=== PATIENT | male | born 1980 | race Two or more races ===

== ENCOUNTER 2023-01-03 14:16 | Emergency (ER) | payer SELFPAY ==
[~2023-01-03] VITALS: Ht 177.8 cm; Wt 90.7 kg
[2023-01-03] MEDS ORDERED: IV NS 0.9% 1,000 ML BAG IV ONE (15:00)
[2023-01-03 15:28] LABS: BASOPHILS % (AUTO) 0.3 % (0.0-2.0); HEMATOCRIT 41 % (39-51); HEMOGLOBIN 13.2 g/dL (13.5-17.5); LYMPHOCYTES # (AUTO) 0.4 K/uL (0.8-4.8); LYMPHOCYTES % (AUTO) 2.1 % (20.0-44.0); MEAN CORPUSCULAR HGB CONC 33 g/dl (31.0-36.0); MEAN CORPUSCULAR VOLUME 87 fL (80-96); MONOCYTES # (AUTO) 0.6 K/uL (0.1-1.30); MONOCYTES % (AUTO) 3.5 % (2.0-12.0); NEUTROPHILS # (AUTO) 16.1 K/uL (1.8-8.9); NEUTROPHILS % (AUTO) 94.1 % (43.0-81.0); PLATELET COUNT (AUTO) 121 K/uL (150-450); RED BLOOD CELL COUNT(AUTO) 4.67 MIL/uL (4.5-6.0); WHITE BLOOD COUNT (AUTO) 17.1 K/uL (4.3-11.0)
[2023-01-03 16:07] LABS: ALANINE AMINOTRANSFERASE 31 U/L (12-78); ALBUMIN 2.3 g/dL (3.4-5.0); ALKALINE PHOSPHATASE 181 U/L (46-116); ASPARTATE AMINOTRANSFERASE 17 U/L (15-37); BILIRUBIN,DIRECT 0.2 mg/dL (0.0-0.2); BILIRUBIN,TOTAL 0.6 mg/dL (0.2-1.0); CALCIUM, SERUM 8.3 mg/dL (8.5-10.1); CARBON DIOXIDE 21 mmol/L (21-32); CHLORIDE 87 mmol/L (98-107); CREATININE 1.5 mg/dL (0.6-1.3); LIPASE 121 U/L (73-393); TOTAL PROTEIN, SERUM 7.4 g/dL (6.4-8.2); UREA NITROGEN, BLOOD 42 mg/dL (7-18)
[2023-01-03 16:28] LABS: SODIUM SERUM 120 mmol/L (136-145)
[2023-01-03 16:29] LABS: GLUCOSE 491 mg/dL (74-106)
[2023-01-03] MEDS ORDERED: INSU100V39 SQ (16:48)
[2023-01-03] MEDS ORDERED: INSULIN REGULAR, HUMAN 100 UNIT/ML 10 ML VIAL SQ ONE (17:00)
[2023-01-03] MEDS ORDERED: IV NS 0.9% 1,000 ML IV ONE (17:00)
[2023-01-03] MEDS ORDERED: INSULIN REGULAR, HUMAN 100 UNIT/ML 10 ML VIAL ONE (17:04)
[2023-01-03 18:05] VITALS: BP 121/64
== END 2023-01-03 18:05 | disposition home or self-care (01) ==
LOC: ER 14:41
DX: E11.65 Type 2 diabetes mellitus with hyperglycemia (principal); R53.1 Weakness; Z79.4 Long term (current) use of insulin; Z60.2 Problems related to living alone
CPT/HCPCS: 99283; 96360; 96361; 85025; 80048; 83605; 83690; 80076; 82962 ×2; 96372; J1815; J7030; A4223 ×2; 36415